=== PATIENT | female | born 1955 | race Caucasian/White ===

== ENCOUNTER → 2020-08-18 | Outpatient (CLI) | payer MEDICARE ==
[2020-08-12 07:57] LABS: HEMOGLOBIN 14.4 gm/dl (12.3-15.3); RED BLOOD COUNT 4.67 M/UL (4.00-5.10); WHITE BLOOD COUNT 11.9 K/UL (4.5-11.0)
[2020-08-12 08:15] LABS: BUN/CREATININE RATIO 31 (0-10)
[~2020-08-18] MED LIST: AMLODIPINE BESYL5 MG PO; CATAPRES 0.1MG0.1 MG PO; COQ-1030 MG PO; ELIQUIS5 MG PO; LASIX TAB 20 MG20 MG PO; LEVOTHYROXINE175 MCG PO; LUTEIN40 MG PO; MELOXICAM15 MG PO; MULTAQ 400 MG400 MG PO; OMEPRAZOLE20 MG PO; TENORMIN 50 MG50 MG PO
== END ==
LOC: CATH 08-12 07:12 → HEART 5 08:53 → ECHO 09:00
PROVIDERS: Internal Medicine Cardiovascular Disease
DX: I48.91 Unspecified atrial fibrillation (principal); I10 Essential (primary) hypertension; E03.9 Hypothyroidism, unspecified; I08.3 Combined rheumatic disorders of mitral, aortic and tricuspid valves; R93.1 Abnormal findings on diagnostic imaging of heart and coronary circulation
CPT/HCPCS: 80048; 85027; 93005; J7040

== ENCOUNTER → 2020-11-14 | Outpatient (CLI) | payer OTHER | LOC: US 13:29 | DX: M79.661 Pain in right lower leg (principal); M79.662 Pain in left lower leg; R60.1 Generalized edema | CPT/HCPCS: 93970 ==

== ENCOUNTER → 2021-01-17 | Outpatient (CLI) | payer OTHER | LOC: HEART 5 10:36 → CT 10:36 → HEART 5 11:00 | DX: R60.0 Localized edema (principal); S35.51 Injury of iliac artery or vein; I65.23 Occlusion and stenosis of bilateral carotid arteries; I87.1 Compression of vein; K76.0 Fatty (change of) liver, not elsewhere classified; K57.90 Diverticulosis of intestine, part unspecified, without perforation or abscess without bleeding | CPT/HCPCS: 36415; 82565; 84520; 93880; 93970; Q9967 ==